=== PATIENT | female | born 1955 | race Hispanic/Latino ===

== ENCOUNTER → 2017-01-10 | Outpatient (CLI) | payer OTHER ==
[~2017-01-10] MED LIST: BACT800T5 PO; DIFL200T PO; PYRI1TAB5 PO
--- NOTE | 2017-01-10 15:01 | REP ---
Digital screening mammography with CAD: Comparison mammography July 30, 2013 and October 20, 2009. Mammographic findings: Scattered fibroglandular elements are seen in a pattern which is symmetric and unchanged. There is a possible grouping of new microcalcifications projecting in the 12 o'clock position of the right breast. This merits further evaluation. Diagnostic right breast mammography is recommended. No other significant mammographic finding. Impression: BIRADS category 0 incomplete breast imaging. Possible microcalcifications 12 o'clock right breast. Diagnostic right mammography recommended. BI-RADS/ACR category 0 mammogram. Incomplete. Additional imaging and/or prior images are needed before a final assessment can be assigned. This mammogram was interpreted with the aid of an FDA-approved computer-aided detection system. The patient states that she/he has not had a clinical breast exam in over a year. The patient letter being requested is m#[id number].
== END ==
LOC: M WHC 13:24
PROVIDERS: ATTEND Physician Assistant Medical
DX: R92.0 Mammographic microcalcification found on diagnostic imaging of breast (principal)

== ENCOUNTER → 2017-01-24 | Outpatient (CLI) | payer OTHER ==
--- NOTE | 2017-01-24 13:44 | REP ---
DIAGNOSTIC MAMMOGRAM RIGHT BREAST: Diagnostic mammogram right breast performed with multiple magnification views obtained. The diagnostic magnification views show a cluster of tiny pleomorphic microcalcifications in the upper right breast. Stereotactic biopsy is recommended. IMPRESSION: ACR 4 suspicious. Clustered microcalcifications upper right breast. Recommend stereotactic biopsy. BI-RADS/ACR category 4 mammogram. Suspicious abnormality - biopsy should be considered. Usually requires biopsy. This mammogram was interpreted with the aid of an FDA-approved computer-aided detection system. A. Negative x-ray reports should not delay biopsy if a dominant or clinically suspicious mass is present. B. Four to eight percent of cancers are not identified by x-ray. C. Adenosis and dense breasts may obscure an underlying neoplasm. The patient letter being requested is [id number]. Signed by Augie Monaco MD 01/25/2017 05:13 P
== END ==
LOC: M RAD 12:48
PROVIDERS: ATTEND Physician Assistant Medical
DX: R92.2 Inconclusive mammogram (principal); R92.0 Mammographic microcalcification found on diagnostic imaging of breast

== ENCOUNTER 2017-02-01 12:30 | Emergency (ER) | payer OTHER ==
[~2017-02-01] VITALS: Ht 154.9 cm; Wt 60.9 kg
[2017-02-01 16:25] LABS: RENAL EPITHELIAL CELLS 1 /HPF; YEAST LIKE CELL URINE AUTO MODERATE
[2017-02-01] MEDS ORDERED: FLUCONAZOLE 100 MG TAB PO ONE (16:45)
[2017-02-01] MEDS ORDERED: BACTRIM 160MG/800MG DS TAB PO ONE (16:45)
[2017-02-01] MEDS ORDERED: PHENAZOPYRIDINE 100 MG TAB PO ONE (16:45)
[2017-02-01] MEDS ORDERED: BACT800T5 PO (16:45)
[2017-02-01] MEDS ORDERED: DIFL200T PO (16:45)
[2017-02-01] MEDS ORDERED: PYRI1TAB5 PO (16:45)
[2017-02-01 16:49] VITALS: BP 131/63
== END 2017-02-01 16:54 | disposition home or self-care (01) ==
LOC: M ED 12:30
DX: N30.00 Acute cystitis without hematuria (principal); J45.909 Unspecified asthma, uncomplicated; E07.9 Disorder of thyroid, unspecified; Z96.0 Presence of urogenital implants

== ENCOUNTER 2018-01-18 07:05 | Day surgery (SDC) | payer OTHER ==
[2018-01-18] MEDS: NS 1,000 ML IV (07:30)
[2018-01-18] MEDS ORDERED: PROPOFOL 200 MG/20 ML VIAL As Ordered ×2 (07:56→08:29)
[2018-01-18] MEDS ORDERED: LIDOCAINE 2% INJ 100 MG/5 ML SDV (FOR ANES.) As Ordered (07:56)
== END 2018-01-18 09:10 | disposition home or self-care (01) ==
LOC: M OPP 07:05
DX: Z12.11 Encounter for screening for malignant neoplasm of colon (principal); K57.30 Diverticulosis of large intestine without perforation or abscess without bleeding; E04.1 Nontoxic single thyroid nodule; M19.90 Unspecified osteoarthritis, unspecified site; R51 Headache; J45.909 Unspecified asthma, uncomplicated; Z88.2 Allergy status to sulfonamides; Z79.82 Long term (current) use of aspirin
CPT/HCPCS: G0121

== ENCOUNTER → 2019-11-30 | Outpatient (CLI) | payer SELFPAY ==
[~2019-11-30] MED LIST changes: +ASPI81TA26 PO; +BIOT50004 PO; +CENT1TAB PO; +CYAN500T8 PO; +FISH7.5C PO; +GLUC1CAP10 PO; +VITA-122 PO
== END ==
LOC: M LABSMTC 12:40
PROVIDERS: ATTEND Pediatrics
DX: Z11.59 Encounter for screening for other viral diseases (principal)

== ENCOUNTER 2021-05-16 15:00 | Emergency (ER) | payer OTHER ==
[~2021-05-16] VITALS: Ht 154.9 cm; Wt 71.0 kg
[~2021-05-16 15:00] MED LIST changes: +CYAN500T14 PO; -CYAN500T8 PO
[2021-05-16] MEDS ORDERED: NAPR-885 (15:08)
[2021-05-16 15:39] LABS: BASO # 0.1 10^3/uL (0.0-0.2); BASO % 0.6 % (0.0-1.0); EOS # 0.2 10^3/uL (0.0-0.5); EOS % 2.2 % (0.0-3.0); HEMATOCRIT 43.6 % (36.0-47.0); HEMOGLOBIN 13.5 g/dl (12.0-15.5); LYMPH # 1.7 10^3/uL (1.5-5.0); LYMPH % 15.8 % (24.0-44.0); MEAN CORPUSCULAR HEMOGLOBIN 26.5 pg (27.0-33.0); MEAN CORPUSCULAR VOLUME 85.7 fl (80.0-96.0); MONO # 0.9 10^3/uL (0.0-0.8); MONO % 8.3 % (2.0-8.0); NEUTROPHILS # 7.9 10^3/uL (1.5-8.5); NEUTROPHILS % 72.9 % (36.0-66.0); PLATELET COUNT, AUTOMATED 333 10^3/uL (150-450); RED BLOOD COUNT 5.09 10^6/uL (4.00-5.40); WHITE BLOOD COUNT 10.8 10^3/uL (4.0-10.0)
[2021-05-16] MEDS ORDERED: KETOROLAC 30 MG/ML 1ML VIAL IV ONE (16:35)
[2021-05-16 17:32] LABS: ALBUMIN 4.3 GM/DL (3.2-5.2); ALT/SGPT 17 U/L (12-78); BILIRUBIN,DIRECT 0.1 MG/DL (0.0-0.2); BILIRUBIN,TOTAL 0.3 MG/DL (0.2-1.0); BLOOD UREA NITROGEN 12 MG/DL (7-18); CALCIUM LEVEL 9.5 MG/DL (8.8-10.2); CARBON DIOXIDE LEVEL 27 MEQ/L (21-32); CHLORIDE LEVEL 105 MEQ/L (98-107); CREATININE FOR GFR 0.55 MG/DL (0.55-1.30); GLOMERULAR FILTRATION RATE > 60.0 (>45); GLUCOSE, FASTING 107 MG/DL (70-100); LIPASE 53 U/L (73-393); POTASSIUM SERUM 3.8 MEQ/L (3.5-5.1); SODIUM LEVEL 139 MEQ/L (136-145); TOTAL PROTEIN 7.8 GM/DL (6.4-8.2)
[2021-05-16 17:51] VITALS: BP 123/59
[2021-05-16] MEDS ORDERED: MACR100C43 PO (18:24)
[2021-05-16] MEDS ORDERED: PYRI1TAB5 PO (18:25)
== END 2021-05-16 18:35 | disposition home or self-care (01) ==
LOC: M ED 15:00
DX: N39.0 Urinary tract infection, site not specified (principal); R74.8 Abnormal levels of other serum enzymes; M51.34 Other intervertebral disc degeneration, thoracic region; K57.30 Diverticulosis of large intestine without perforation or abscess without bleeding; R51.9 Headache, unspecified; E03.9 Hypothyroidism, unspecified; E78.5 Hyperlipidemia, unspecified; J45.909 Unspecified asthma, uncomplicated; Z88.2 Allergy status to sulfonamides
CPT/HCPCS: 74176; 80047; 80048; 80076; 81001; 83690; 85025; 87088; 87186; 96374; 99284; J1885

== ENCOUNTER → 2021-06-29 | Outpatient (CLI) | payer OTHER ==
[~2021-06-29] MED LIST changes: +MACR100C43 PO; +NAPR-885
[2021-06-29 18:14] LABS: HEMATOCRIT 40.1 % (36.0-47.0); HEMOGLOBIN 12.7 g/dl (12.0-15.5); MEAN CORPUSCULAR HEMOGLOBIN 26.8 pg (27.0-33.0); MEAN CORPUSCULAR HGB CONC 31.7 g/dl (32.0-36.5); MEAN CORPUSCULAR VOLUME 84.8 fl (80.0-96.0); PLATELET COUNT, AUTOMATED 302 10^3/uL (150-450); RED BLOOD COUNT 4.73 10^6/uL (4.00-5.40); WHITE BLOOD COUNT 4.8 10^3/uL (4.0-10.0)
[2021-06-29 18:29] LABS: INR 0.89; PROTHROMBIN TIME 12.4 SECONDS (12.7-14.5)
[2021-06-29 18:40] LABS: ALBUMIN 3.9 GM/DL (3.2-5.2); ALT/SGPT 22 U/L (12-78); BILIRUBIN,TOTAL 0.2 MG/DL (0.2-1.0); BLOOD UREA NITROGEN 10 MG/DL (7-18); CALCIUM LEVEL 9.3 MG/DL (8.8-10.2); CARBON DIOXIDE LEVEL 31 MEQ/L (21-32); CHLORIDE LEVEL 107 MEQ/L (98-107); CREATININE FOR GFR 0.52 MG/DL (0.55-1.30); GLOMERULAR FILTRATION RATE > 60.0 (>45); GLUCOSE, FASTING 106 MG/DL (70-100); POTASSIUM SERUM 4.1 MEQ/L (3.5-5.1); SODIUM LEVEL 141 MEQ/L (136-145); TOTAL PROTEIN 6.9 GM/DL (6.4-8.2)
[2021-06-29 19:27] LABS: ERYTHROCYTE SEDIMENTATION RATE 16 mm/hr (0-30)
== END ==
LOC: M RAD 16:27
PROVIDERS: ATTEND Orthopaedic Surgery
DX: M17.12 Unilateral primary osteoarthritis, left knee (principal)

== ENCOUNTER → 2022-05-12 | Outpatient (CLI) | payer MEDICARE, OTHER ==
[~2022-05-12] MED LIST changes: +FISH10005 PO; -FISH7.5C PO
== END ==
LOC: M WHC 10:19
PROVIDERS: ATTEND Family Medicine
DX: Z12.31 Encounter for screening mammogram for malignant neoplasm of breast (principal)

== ENCOUNTER → 2023-04-26 | Outpatient (CLI) | payer MEDICARE, OTHER ==
[~2023-04-26] MED LIST changes: -BIOT50004 PO; +BIOT5CAP8 PO
== END ==
LOC: M RAD 10:49
PROVIDERS: ATTEND Family Medicine
DX: R00.2 Palpitations (principal); R00.0 Tachycardia, unspecified

== ENCOUNTER → 2023-05-27 | Outpatient (CLI) | payer MEDICARE, OTHER | LOC: M WHC 13:50 | PROVIDERS: ATTEND Family Medicine | DX: M85.811 Other specified disorders of bone density and structure, right shoulder (principal); M85.851 Other specified disorders of bone density and structure, right thigh; M85.852 Other specified disorders of bone density and structure, left thigh ==

== ENCOUNTER → 2023-08-22 | Outpatient (CLI) | payer MEDICARE, OTHER | LOC: M WHC 11:35 | PROVIDERS: ATTEND Family Medicine | DX: Z12.31 Encounter for screening mammogram for malignant neoplasm of breast (principal) ==

== ENCOUNTER 2024-01-11 13:14 | Day surgery (SDC) | payer MEDICARE, OTHER ==
[~2024-01-11] VITALS: Ht 152.4 cm; Wt 68.0 kg
[2024-01-11] MEDS: NS 1,000 ML IV ONE (14:45)
[2024-01-11] MEDS ORDERED: VITA100065 PO (14:49)
[2024-01-11] MEDS ORDERED: propofoL 200 MG/20 ML VIAL As Ordered ONE (15:40)
[2024-01-11] MEDS ORDERED: LIDOCAINE 2% 100MG/5ML SDV (FOR ANES.) As Ordered ONE (15:40)
[2024-01-11 16:00] VITALS: TEMP 97.8
[2024-01-11 16:23] VITALS: BP 137/69; O2SAT 98
== END 2024-01-11 16:39 | disposition home or self-care (01) ==
LOC: M OPP 13:14
PROVIDERS: ATTEND Surgery
DX: Z12.11 Encounter for screening for malignant neoplasm of colon (principal); K64.9 Unspecified hemorrhoids; K57.30 Diverticulosis of large intestine without perforation or abscess without bleeding; Z79.899 Other long term (current) drug therapy; Z88.2 Allergy status to sulfonamides